=== PATIENT | female | born 1970 | race Caucasian/White ===

== ENCOUNTER 2022-06-20 15:13 | Outpatient (CLI) | payer OTHER, SELFPAY ==
[2022-06-20 12:23] LABS: Cholesterol* 189 mg/dL (90-199)
[2022-06-20 12:24] LABS: HDL Cholesterol* 41 mg/dL (>=50); LDL Cholesterol Calculated 123 mg/dL (<100); Triglycerides* 126 mg/dL (40-149)
[2022-06-21 12:53] LABS: Glucose* 106 mg/dL (60-115)
== END 2022-06-20 15:14 | disposition home or self-care (01) ==
PROVIDERS: PCP Internal Medicine; Visit Provider Internal Medicine
DX: E78.5 Hyperlipidemia, unspecified (principal); Z13.1 Encounter for screening for diabetes mellitus
CPT/HCPCS: 80061; 82947

== ENCOUNTER 2022-08-16 14:52 | Outpatient (CLI) | payer OTHER, SELFPAY ==
--- NOTE | 2022-08-16 15:00 | CRLHL7_ITS ---
For Patients: As a result of the Cures Act, medical imaging exams and procedure reports are released immediately into your electronic medical record. You may view this report before your referring provider. If you have questions, please contact your health care provider. BILATERAL SCREENING MAMMOGRAM WITH COMPUTER-AIDED DETECTION AND TOMOSYNTHESIS TECHNIQUE: CC and MLO views were obtained. These mammographic images have been obtained using full-field digital technique. These mammographic images were interpreted with the benefit of computer-aided detection. Breast Tomosynthesis was used in this interpretation. COMPARISON FILM: 05/04/21, 01/18/19, 09/04/15. FINDINGS: There are scattered areas of fibroglandular density IMPRESSION: There is no radiographic evidence for malignancy. ASSESSMENT: BI-RADS Category 1: Negative RECOMMENDATION: Routine screening mammogram in 1 year. A lay language report of this examination will be provided to the patient. Constantine West M.D. Diagnostic Radiologist [email or web address] ADRIANA/deneen / be/Dictated by: Constantine West MD @ 08/17/2022 12:21:00 PM (Electronically Signed)
== END 2022-08-16 14:53 | disposition home or self-care (01) ==
LOC: MAMMO 14:52
PROVIDERS: PCP Internal Medicine; Visit Provider Internal Medicine
DX: Z12.31 Encounter for screening mammogram for malignant neoplasm of breast (principal)
CPT/HCPCS: 77063; 77067

== ENCOUNTER 2023-07-17 07:33 | Outpatient (CLI) | payer OTHER, SELFPAY | END 2023-07-17 07:34 | disposition home or self-care (01) | LOC: NFLDREF 07-19 09:50 | PROVIDERS: PCP Internal Medicine; Referring Provider Internal Medicine; Visit Provider Internal Medicine | DX: E78.5 Hyperlipidemia, unspecified (principal) | CPT/HCPCS: 80061 ==

== ENCOUNTER 2024-08-30 07:30 | Outpatient (CLI) | payer BC, SELFPAY ==
--- OUTSIDE RECORDS SUMMARY | 2024-08-30 13:38 | XMS_ITS | Clinical Summary ---
Author Organization [facility] Address [place], [place] [address] Care Team Providers Care Electrical Automation Engineer Name Role Phone Pcp, No Primary Care Provider Unavailabl e Allergies Active Allergy Reactions Criticality Noted Date Comments Rabeprazole Intolerance-Can't Take 07/11/2007 Headache Omeprazole Intolerance-Can't Take 07/11/2007 headache Sulfa (Sulfonamide Antibiotics) Rash 03/28/2007 Sulfite Anaphylaxis 08/02/2007 Medications Medication Sig Dispensed Refills Start Date End Date Status GLUCOSAMINE-CHONDROI TIN 500 MG-400 MG CAP 0 01/23/2008 Active CELEXA 40 MG TAB 1/2 tab by mouth daily 15 1 10/15/2008 Active gabapentin (NEURONTIN) 300 mg capsuleIndications:C ervicalgia TAKE ONE CAPSULE AT BEDTIME 30 capsule 1 08/03/2013 Active Active Problems Problem Noted Date Diagnosed Date Spasm of muscle 02/22/2008 Cervical spondylosis without myelopathy 02/21/20 08 Allergic rhinitis, cause unspecified 08/02/2007 Allergic rhinitis, cause unspecified 07/11/2007 Esophageal reflux 07/11/2007 Other acne 07/11/2007 Irritable bowel syndrome 07/11/2007 Mild dysplasia of cervix 07/11/2007 Immunizations Name Administration Dates Next Due Td (Age >=7 Years) 12/20/1999 Family History Medical History Relation Name Comments Allergies Father Hypertension Father Diabetes Maternal Grandfather Heart Disease Maternal Grandfather CHF Alcohol/Drug Maternal Uncle Allergies Mother Diabetes Mother Hypertension Mother Relation Name Status Comments Father Maternal Grandfather Maternal Uncle Mother Social History Tobacco Use Types Packs/Day Years Used Date Smoking Tobacco: Never Smokeless Tobacco: Never Alcohol Use Standard Drinks/Week Comments Yes 0 (1 standard drink = 0.6 oz pur e alcohol) occ Sex and Gender Information Value Date Recorded Sex Assigned at Not on file Gender Identity Not on file Sexual Orientation Not on file Obstetrics History Para Term AB IAB SAB Ectopic Multiple Livin g Live Births 2 2 2 Date Outcome GA Total Labor Labor/2nd/3rd Weight Sex Type Anes PTL Cheryl A1 A5 Name Clin Para Para Last Filed Vital Signs Vital Sign Reading Time Taken Comments Blood Pressure 122/76 01/28/2020 3:13 PM CDT Pulse 67 01/28/2020 3:13 PM CDT Temperature 36.8 ??C (98.3 ??F) 07/15/2011 10:30 AM C DT Respiratory Rate - - Oxygen Saturation 98% 01/28/2020 3:13 PM CDT Inhaled Oxygen Concentration - - Weight 91.7 kg (202 lb 3.2 oz) 01/28/2020 3:13 P M CDT Height 178.4 cm (5' 10.25) 07/11/2007 3:45 PM C DT Body Mass Index - - Plan of Treatment Health Maintenance Due Date Last Done Comments Tdap 1982 Depression screening for age 12+ 1983 HIV for age 15-65 1986 BMI (ht and wt on same day) for age 18+ 1989 Hepatitis C screening for age 18-79 1989 Tetanus booster 12/20/2009 12/20/1999 Colonoscopy through age 75 2016 Lipids for age 45-75 2016 Mammogram for age 45-75 2016 Zoster (shingles) series for age 50+ (1 of 2) 2021 Pap test for age 21-65 02/13/2022 9, 02/13/2019, 04/28/2014, Additional history exists COVID-19 vaccine series ( - 2023- season) 2024 Influenza for age 50-64 07/21/2024 Pneumococcal series for age 6-64 Aged Out No longer eligible based on patient's age to complete this topic Procedures Procedure Name Priority Date/Time Associated Diagnosis Comments COMMUNITY HEALTH REPRESENTATIVE THIN PREP PAP SCREEN IMAGED Routine 02/13/2019 9:34 AM CDT from Last 3 Months or Most Recently Relevant to Health Maintenance Results * COMMUNITY HEALTH REPRESENTATIVE THIN PREP PAP SCREEN IMAGED (02/13/2019 9:34 AM CDT) Case Report Gynecologic Cytology Report ? Case: [id number] ? Authorizing Provider: ??Lisa Barillas NP ? Collected: ? 02/13/2019 0934 ? Ordering Location: ? [facility] ?Received: ?02/14/2019 1231 ? First Screen: ?Mela Khan ? Pathologist: ? Leti Guillaume MD ? Specimen: ?COMMUNITY HEALTH REPRESENTATIVE ThinPrep Vial Screening, Cervical/Vaginal ? 02/22/2019 7:58 AM CDT [facility] INTERPRETATION/ RESULT NEGATIVE FOR INTRAEPITHELIAL LESION OR MALIGNANCY (NIL) (none) 02/22/2019 7:58 AM CDT [facility] R NON-NEOPLASTIC FINDING(S) Reactive cellular changes associated with inflammation/repa ir 02/22/2019 7:58 AM CDT [facility] SPECIMEN ADEQUACY Satisfactory for evaluation No endocervical component seen 02/22/2019 7:58 AM CDT [facility] HPV REQUEST HPV and PAP 02/22/2019 7:58 AM CDT [facility] Date of LMP 02/22/2019 7:58 AM CDT [facility] Comment:spotting 6 mo ago Last Pap Date 04/28/2014 02/22/2019 7:58 AM CDT [facility] Last Pap Result NIL 7:58 AM CDT [facility] Comment:-HPV Automated Review Successful 02/22/2019 7:58 AM CDT [facility] Comment:Specimen processed s uccessfully by automated detention attendant device, ThinPrep Imaging System, [employer] ANCILLARY TESTING COMMUNITY HEALTH REPRESENTATIVE HPV Ordered, Please see separate report 02/22/2019 7:58 AM CDT [facility] Note The pap test is a screening technique, not a diagnostic procedure. ??It is used primarily to screen for squamous cancers and precursor lesions. ??Published studies have shown that it is subject to both false negative and false positive results. ??The pap test should not be used as the sole means to diagnose or exclude pre-malignant and malignant lesions. Cytology is screened and interpreted at [facility] - [address], [place] [address] and [facility] - [address]; [place] [address] and [facility] - [address]; [place] [address] and [facility] [address]; [place] [address] 02/22/2019 7:58 AM CDT [facility] Other (Cervical/Vagina l) 02/13/2019 9:34 AM CDT 02/14/2019 12:31 PM CDT Lisa Barillas NP PATHOLOGY/CYTOLOGY [facility] [address] [place] [address], from Last 3 Months or Most Recently Relevant to Health Maintenance Care Teams Electrical Automation Engineer Relationship Specialty Start Date End Date Pcp, No . PCP - General 10/26/18
== END 2024-08-30 07:31 | disposition home or self-care (01) ==
LOC: NFLDREF 13:33
PROVIDERS: PCP Internal Medicine; Referring Provider Internal Medicine; Visit Provider Internal Medicine
DX: E11.9 Type 2 diabetes mellitus without complications (principal); E78.5 Hyperlipidemia, unspecified
CPT/HCPCS: 80061; 82947

== ENCOUNTER 2024-09-05 13:02 | Outpatient (CLI) | payer BC, SELFPAY ==
[2024-09-08 03:24] LABS: HPV Source Cervical; HPV, High Risk by TMA Not Detected
[2024-09-20 14:21] LABS: Pap Test Reviewed by Path Done
== END 2024-09-05 13:03 | disposition home or self-care (01) ==
PROVIDERS: PCP Internal Medicine; Visit Provider Internal Medicine
DX: Z00.00 Encounter for general adult medical examination without abnormal findings (principal); Z12.4 Encounter for screening for malignant neoplasm of cervix
CPT/HCPCS: 87624; 87625; 88141; 88142

== ENCOUNTER 2024-11-26 17:13 | Outpatient (CLI) | payer BC, SELFPAY ==
--- NOTE | 2024-11-26 18:20 | CRLHL7_ITS ---
For Patients: As a result of the Century Cures Act, medical imaging exams and procedure reports are released immediately into your electronic medical record. You may view this report before your referring provider. If you have questions, please contact your health care provider. BILATERAL SCREENING MAMMOGRAM WITH COMPUTER-AIDED DETECTION AND TOMOSYNTHESIS TECHNIQUE: CC and MLO views were obtained. These mammographic images have been obtained using full-field digital technique. These mammographic images were interpreted with the benefit of computer-aided detection. Breast Tomosynthesis was used in this interpretation. COMPARISON FILM: 08/16/22, 05/04/21, 01/18/19. FINDINGS: There are scattered areas of fibroglandular density. IMPRESSION: There is no radiographic evidence for malignancy. ASSESSMENT: BI-RADS Category 1: Negative RECOMMENDATION: Routine screening mammogram in 1 year. A lay language report of this examination will be provided to the patient. Constantine West M.D. Diagnostic Radiologist [email or web address] SP/Dictated by: Constantine West MD @ 11/27/2024 12:33:00 PM (Electronically Signed)
== END 2024-11-26 17:14 | disposition home or self-care (01) ==
LOC: MAMMO 17:14
PROVIDERS: PCP Internal Medicine; Visit Provider Internal Medicine
DX: Z12.31 Encounter for screening mammogram for malignant neoplasm of breast (principal)
CPT/HCPCS: 77063; 77067

== ENCOUNTER 2025-09-18 07:50 | Outpatient (CLI) | payer BC, SELFPAY | END 2025-09-18 07:51 | disposition home or self-care (01) | LOC: NFLDREF 09-19 04:13 | PROVIDERS: PCP Internal Medicine; Referring Provider Internal Medicine; Visit Provider Internal Medicine | DX: E78.5 Hyperlipidemia, unspecified (principal); Z13.1 Encounter for screening for diabetes mellitus | CPT/HCPCS: 80061; 82947 ==